=== PATIENT | female | born 1990 | race Caucasian/White ===

== ENCOUNTER 2017-11-26 18:28 | Emergency (ER) | payer OTHER, MEDICAID ==
[~2017-11-26] VITALS: Ht 170.2 cm; Wt 86.2 kg
[~2017-11-26 18:28] MED LIST: ACYCLOVIR 400400 MG PO; BACTRIM DS TAB1 EACH PO; CLEOCIN HCL150 MG PO; COLACE100 MG PO; DERMOPLAST PA82.5 ML; IBUPROFEN 800800 M1 PO; KEFLEX500 MG PO; LAN-O-SOOTHE56 GM; NORCO 5-325 TA1 EAC1 PO; TRAMADOL 50 MG50 MG PO; TUCKS MEDICATE1 EAC1; VICODIN 5-3001 EACH PO; XANAX 0.25 MG0.25 MG PO; ZOFRAN4 MG PO
[2017-11-26] MEDS ORDERED: HYDROCODONE-AP1 EAC6 PO (18:47)
[2017-11-26] MEDS ORDERED: CLEOCIN HCL150 MG PO (18:47)
[2017-11-26 19:01] VITALS: BP 149/86
== END 2017-11-26 19:01 | disposition home or self-care (01) ==
LOC: M.ERS 18:28
DX: L03.115 Cellulitis of right lower limb (principal); F32.9 Major depressive disorder, single episode, unspecified; F17.200 Nicotine dependence, unspecified, uncomplicated; Z86.14 Personal history of Methicillin resistant Staphylococcus aureus infection; Z88.0 Allergy status to penicillin

== ENCOUNTER 2018-01-21 02:28 | Emergency (ER) | payer OTHER, MEDICAID ==
[~2018-01-21] VITALS: Ht 170.2 cm; Wt 99.2 kg
[~2018-01-21 02:28] MED LIST changes: +HYDROCODONE-AP1 EAC6 PO
[2018-01-21] MEDS ORDERED: NUVARING VAGIN1 EACH (02:35)
[2018-01-21] MEDS ORDERED: FLEXERIL PO (03:01)
[2018-01-21] MEDS ORDERED: HYDROCODONE-AP1 EAC6 PO (03:01)
[2018-01-21 03:32] VITALS: BP 152/99
== END 2018-01-21 03:31 | disposition home or self-care (01) ==
LOC: M.ERS 02:28
DX: M62.838 Other muscle spasm (principal); F41.9 Anxiety disorder, unspecified; F17.200 Nicotine dependence, unspecified, uncomplicated; Z86.14 Personal history of Methicillin resistant Staphylococcus aureus infection; Z88.0 Allergy status to penicillin

== ENCOUNTER 2018-02-02 18:09 | Emergency (ER) | payer OTHER, MEDICAID ==
[~2018-02-02] VITALS: Ht 170.2 cm; Wt 99.8 kg
[~2018-02-02 18:09] MED LIST changes: +FLEXERIL PO; +NUVARING VAGIN1 EACH
[2018-02-02] MEDS ORDERED: NORCO 5-325 TA1 EACH PO (18:51)
[2018-02-02] MEDS ORDERED: IBUPROFEN 600600 M1 PO (18:51)
[2018-02-02] MEDS ORDERED: CYCLOBENZAPRINE10 MG PO (18:51)
[2018-02-02 19:09] VITALS: BP 107/66
== END 2018-02-02 19:10 | disposition home or self-care (01) ==
LOC: M.ERS 18:09
DX: S46.811A Strain of other muscles, fascia and tendons at shoulder and upper arm level, right arm, initial encounter (principal); F41.9 Anxiety disorder, unspecified; F17.200 Nicotine dependence, unspecified, uncomplicated; Z86.14 Personal history of Methicillin resistant Staphylococcus aureus infection; Z88.0 Allergy status to penicillin; X58.XXXA Exposure to other specified factors, initial encounter; Y93.89 Activity, other specified; Y92.89 Other specified places as the place of occurrence of the external cause; Y99.8 Other external cause status

== ENCOUNTER 2018-06-20 09:48 | Emergency (ER) | payer OTHER, MEDICAID ==
[~2018-06-20] VITALS: Ht 170.2 cm; Wt 90.7 kg
[~2018-06-20 09:48] MED LIST changes: +CYCLOBENZAPRINE10 MG PO; +IBUPROFEN 600600 M1 PO; +NORCO 5-325 TA1 EACH PO
[2018-06-20] MEDS ORDERED: KEFLEX500 M1 PO (10:12)
[2018-06-20 10:27] VITALS: BP 125/83
== END 2018-06-20 10:29 | disposition home or self-care (01) ==
LOC: M.ERS 09:48
DX: K08.89 Other specified disorders of teeth and supporting structures (principal); R20.0 Anesthesia of skin; F41.9 Anxiety disorder, unspecified; Z88.0 Allergy status to penicillin; Z86.14 Personal history of Methicillin resistant Staphylococcus aureus infection

== ENCOUNTER 2020-01-22 20:40 | Emergency (ER) | payer OTHER, MEDICAID ==
[~2020-01-22] VITALS: Ht 170.2 cm; Wt 99.8 kg
[~2020-01-22 20:40] MED LIST changes: +KEFLEX500 M1 PO
[2020-01-22] MEDS ORDERED: CLEOCIN HCL300 MG PO (20:56)
[2020-01-22 21:21] VITALS: BP 142/87
== END 2020-01-22 21:22 | disposition home or self-care (01) ==
LOC: M.ERS 20:40
DX: T81.49XA Infection following a procedure, other surgical site, initial encounter (principal); L03.113 Cellulitis of right upper limb; Z88.0 Allergy status to penicillin; Z86.14 Personal history of Methicillin resistant Staphylococcus aureus infection; Y84.8 Other medical procedures as the cause of abnormal reaction of the patient, or of later complication, without mention of misadventure at the time of the procedure; Y92.89 Other specified places as the place of occurrence of the external cause

== ENCOUNTER 2020-03-14 23:21 | Emergency (ER) | payer OTHER, MEDICAID ==
[~2020-03-14] VITALS: Ht 170.2 cm; Wt 79.4 kg
[~2020-03-14 23:21] MED LIST changes: +CLEOCIN HCL300 MG PO
[2020-03-14] MEDS ORDERED: BACTRIM DS TAB1 EAC1 PO (23:29)
[2020-03-14 23:42] LABS: URINE BILIRUBIN NEGATIVE (Negative); URINE BLOOD NEGATIVE (Negative); URINE CLARITY CLEAR; URINE COLOR YELLOW; URINE GLUCOSE-RANDOM NEGATIVE (Negative); URINE KETONES NEGATIVE (Negative); URINE LEUKOCYTES-REFLEX NEGATIVE (Negative); URINE NITRITE-REFLEX NEGATIVE (Negative); URINE PROTEIN NEGATIVE (Negative); URINE UROBILINOGEN 0.2 E.U./dl (0.2-1.0)
[2020-03-15] MEDS ORDERED: ZPAK PO (00:46)
[2020-03-15] MEDS ORDERED: NORCO 5-325 TA1 EAC1 PO (00:51)
[2020-03-15 01:01] VITALS: BP 157/82
--- NOTE | 2020-03-15 14:12 | EKG ---
[place] [address] ELECTROCARDIOGRAM REPORT Name: DUONGLIENTESSA Rudy Room: [facility]#: [id number] Admission: 03/14/20 Attend Phys: Discharge: 03/15/20 Date of : 86 Date of Service: 03/14/202326 Report #: [id number] THIS REPORT FOR: //name// [facility] ED Test Date: 2020-03-14 Test Time: 23:27:25 Pat Name: TESSA WATTERS Department: Room: Gender: F [employer]il [employer]er: JACK : 1990 Requested By: Cliff Marquez Order Number: [id number] MD: Raghu Nova Measurements Intervals [place] Rate: 113 P: 29 TN: 135 QRS: 81 QRSD: 98 T: 49 QT: 317 QTc: 435 Interpretive Statements Sinus tachycardia No previous ECG available for comparison Electronically Signed On 03-15-2020 14:10:02 CDT by Raghu Nova [email or web address] <ELECTRONICALLY SIGNED> By: Raghu Nova MD, [facility] 03/15/20 1410 26 26 Raghu Nova MD, FACC /EPI
== END 2020-03-15 01:01 | disposition home or self-care (01) ==
LOC: M.ERS 23:21
PROVIDERS: Family Medicine
DX: B34.9 Viral infection, unspecified (principal); L98.9 Disorder of the skin and subcutaneous tissue, unspecified; F41.9 Anxiety disorder, unspecified; Z86.14 Personal history of Methicillin resistant Staphylococcus aureus infection; Z88.0 Allergy status to penicillin

== ENCOUNTER 2020-10-27 01:24 | Emergency (ER) | payer OTHER, MEDICAID ==
[~2020-10-27] VITALS: Ht 170.2 cm; Wt 108.9 kg
[~2020-10-27 01:24] MED LIST changes: +BACTRIM DS TAB1 EAC1 PO; +ZPAK PO
[2020-10-27 01:50] LABS: URINE BILIRUBIN NEGATIVE (Negative); URINE BLOOD NEGATIVE (Negative); URINE CLARITY CLEAR; URINE COLOR YELLOW; URINE GLUCOSE-RANDOM TRACE (Negative); URINE KETONES NEGATIVE (Negative); URINE LEUKOCYTES-REFLEX NEGATIVE (Negative); URINE NITRITE-REFLEX NEGATIVE (Negative); URINE PROTEIN NEGATIVE (Negative); URINE SPECIFIC GRAVITY >= 1.030 (1.005-1.030); URINE UROBILINOGEN 0.2 E.U./dl (0.2-1.0)
[2020-10-27] MEDS ORDERED: ACETAMINOPHEN-1 EAC2 PO (03:00)
[2020-10-27] MEDS ORDERED: MEDROLDOSEPACK PO (03:00)
[2020-10-27 03:08] LABS: AMP/METHAMP POSITIVE (Negative); BARBITURATES Negative (Negative); BENZODIAZEPINES POSITIVE (Negative); COCAINE Negative (Negative); METHADONE Negative (Negative); OPIATES Negative (Negative); PCP Negative (Negative); THC POSITIVE (Negative)
[2020-10-27 03:40] VITALS: BP 130/89
== END 2020-10-27 03:40 | disposition home or self-care (01) ==
LOC: M.ERS 01:24
PROVIDERS: Personal Emergency Response Attendant
DX: B34.9 Viral infection, unspecified (principal); R05 Cough; Z20.828 Contact with and (suspected) exposure to other viral communicable diseases; Z88.0 Allergy status to penicillin; Z86.14 Personal history of Methicillin resistant Staphylococcus aureus infection; Z79.899 Other long term (current) drug therapy